=== PATIENT | male | born 1980 | race African-American/Black ===

== ENCOUNTER 2016-12-17 19:25 | Emergency (ER) | payer SELFPAY ==
[2016-12-17] MEDS ORDERED: NORMAL SALINE 1000 ML 1,000 ML IV ONE ×2 (20:34→22:27)
[2016-12-17] MEDS ORDERED: ONDANSETRON HCL INJ/PF 4 MG/2 ML SDV IV ONE (20:34)
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
[2016-12-17] MEDS ORDERED: ACETAMINOPHEN 325 MG TABLET PO ONE (21:25)
[2016-12-17 21:29] LABS: ALANINE AMINOTRANSFERASE 22 U/L (21-72); ALBUMIN 4.3 g/dL (3.5-5.0); ALKALINE PHOSPHATASE 66 U/L (38-126); ANION GAP 12 (5-19); ASPARTATE AMINO TRANSFERASE 24 U/L (17-59); BILIRUBIN,DIRECT 0.3 mg/dL (0.0-0.4); BILIRUBIN,TOTAL 0.9 mg/dL (0.2-1.3); BLOOD UREA NITROGEN 15 mg/dL (7-20); CALCIUM 9.8 mg/dL (8.4-10.2); CARBON DIOXIDE 25 mmol/L (22-30); CHLORIDE 105 mmol/L (98-107); CREATINE KINASE 101 U/L (55-170); GLUCOSE 91 mg/dL (75-110); LIPASE 62.7 U/L (23-300); POTASSIUM 4.5 mmol/L (3.6-5.0); SODIUM 141.6 mmol/L (137-145); TOTAL PROTEIN 7.9 g/dL (6.3-8.2)
[2016-12-17 21:41] LABS: CREATINE KINASE MB 0.29 ng/mL (<4.55)
[2016-12-17 21:42] LABS: TROPONIN I < 0.012 ng/mL
[2016-12-17 22:48] LABS: ABSOLUTE LYMPHOCYTES (AUTO) 0.3 10^3/uL (0.5-4.7); ABSOLUTE MONOCYTES (AUTO) 0.9 10^3/uL (0.1-1.4); ABSOLUTE NEUT (AUTO) 11.4 10^3/uL (1.7-8.2); BASOPHILS % (AUTO) 0.1 % (0-2); EOSINOPHILS % (AUTO) 0.2 % (0-6); HEMATOCRIT 43.8 % (37.9-51.0); HEMOGLOBIN 14.3 g/dL (13.5-17.0); HGB HCT DIFFERENCE -0.9; LYMPHOCYTES % (AUTO) 2.4 % (13-45); MEAN CORPUSCULAR HEMOGLOBIN 25.8 pg (27.0-33.4); MEAN CORPUSCULAR HGB CONC 32.6 g/dL (32.0-36.0); MEAN CORPUSCULAR VOLUME 79 fl (80-97); RED BLOOD COUNT 5.53 10^6/uL (4.35-5.55); RED CELL DISTRIBUTION WIDTH 15.2 % (11.5-14.0); SEGMENTED NEUTROPHILS % (AUTO) 90.3 % (42-78); WHITE BLOOD COUNT 12.6 10^3/uL (4.0-10.5)
[2016-12-17 23:27] LABS: VENOUS BLOOD HCO3 22.3 mmol/L (20-32); VENOUS BLOOD PCO2 36.8 mmHg (35-63); VENOUS BLOOD PH 7.4 (7.30-7.42)
[2016-12-18] LABS: APPEARANCE,URINE SLIGHTLY-CLOUDY; BILIRUBIN,URINE NEGATIVE (NEGATIVE); GLUCOSE, URINE NEGATIVE (NEGATIVE); KETONES,URINE TRACE mg/dL (NEGATIVE); LEUKOCYTE ESTERASE,URINE NEGATIVE (NEGATIVE); NITRITE,URINE NEGATIVE (NEGATIVE); PROTEIN,URINE NEGATIVE (NEGATIVE); URINE SPECIFIC GRAVITY 1.025; UROBILINOGEN,URINE NEGATIVE mg/dL (<2.0)
[2016-12-18] MEDS ORDERED: KETOROLAC TROMETHAMINE INJ/PF 30 MG/1 ML SDV IV ONE (00:01)
[2016-12-18] MEDS ORDERED: PENICILLIN G BENZATHINE 1.2 MILLION UNIT/2 ML DISP.SYRIN IM ONE (00:46)
[2016-12-18] MEDS ORDERED: NORMAL SALINE 1000 ML 1,000 ML IV ONE (01:45)
[2016-12-18 03:45] VITALS: BP 100/61
--- NOTE | 2016-12-18 10:39 | EKG REPORT ---
SEVERITY:- BORDERLINE ECG - SINUS RHYTHM PROBABLE LEFT ATRIAL ABNORMALITY : Confirmed by: Lynda Galvez MD 18-Dec-2016 10:38:37
== END 2016-12-18 03:56 | disposition home or self-care (01) ==
LOC: ER 19:25
DX: J02.0 Streptococcal pharyngitis (principal); E86.0 Dehydration; R50.9 Fever, unspecified; R11.10 Vomiting, unspecified; R07.81 Pleurodynia; R07.9 Chest pain, unspecified
CPT/HCPCS: 93005; 99284; 96372; 96374; 96375; 36415; 87040; 82553; 87880; 82550; 83690; 85025; 80053; 81001; 84484; 82803; 83605; 71020; 93010; J1885; J0561; J2405

== ENCOUNTER 2017-10-24 07:29 | Emergency (ER) | payer OTHER ==
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
[2017-10-24] MEDS ORDERED: ACETAMINOPHEN 325 MG TABLET PO ONE (08:37)
[2017-10-24] MEDS ORDERED: ACETAMINOPHEN 325 MG TABLET ONE (08:40)
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
[2017-10-24] MEDS ORDERED: IBUPROFEN 600 MG TABLET PO ONE (09:11)
[2017-10-24] MEDS ORDERED: LIDOCAINE 5% (700 MG) TRANSDERMAL ADH..PATCH TP ONE (09:11)
[2017-10-24 09:33] VITALS: BP 107/58
== END 2017-10-24 09:32 | disposition home or self-care (01) ==
LOC: ER 07:29
DX: S16.1XXA Strain of muscle, fascia and tendon at neck level, initial encounter (principal); S09.90XA Unspecified injury of head, initial encounter; M54.2 Cervicalgia; M54.5 Low back pain; R51 Headache; V49.40XA Driver injured in collision with unspecified motor vehicles in traffic accident, initial encounter; R42 Dizziness and giddiness; F17.200 Nicotine dependence, unspecified, uncomplicated
CPT/HCPCS: 99284; 72110; 70450; 72125; L0120

== ENCOUNTER 2017-10-26 05:25 | Emergency (ER) | payer OTHER ==
[2017-10-26] MEDS ORDERED: KETOROLAC TROMETHAMINE INJ/PF 30 MG/1 ML SDV IV ONE (05:53)
[2017-10-26] MEDS ORDERED: DEXAMETHASONE SOD PHOS INJ 10 MG/1 ML VIAL IV ONE (05:53)
[2017-10-26] MEDS ORDERED: NORMAL SALINE 1000 ML 1,000 ML IV ONE (05:56)
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
[2017-10-26 06:21] LABS: ABSOLUTE BASOPHILS # (AUTO) 0.1 10^3/uL (0.0-0.2); ABSOLUTE EOSINOPHILS # (AUTO) 0.1 10^3/uL (0.0-0.6); ABSOLUTE MONOCYTES (AUTO) 1.1 10^3/uL (0.1-1.4); ABSOLUTE NEUT (AUTO) 5.1 10^3/uL (1.7-8.2); BASOPHILS % (AUTO) 0.8 % (0-2); EOSINOPHILS % (AUTO) 1.7 % (0-6); HEMATOCRIT 42.3 % (37.9-51.0); HEMOGLOBIN 13.6 g/dL (13.5-17.0); LYMPHOCYTES % (AUTO) 24.1 % (13-45); MEAN CORPUSCULAR HEMOGLOBIN 25.7 pg (27.0-33.4); MEAN CORPUSCULAR HGB CONC 32.2 g/dL (32.0-36.0); MEAN CORPUSCULAR VOLUME 80 fl (80-97); MONOCYTES % (AUTO) 12.5 % (3-13); PLATELET COUNT 244 10^3/uL (150-450); RED BLOOD COUNT 5.29 10^6/uL (4.35-5.55); RED CELL DISTRIBUTION WIDTH 15.5 % (11.5-14.0); SEGMENTED NEUTROPHILS % (AUTO) 60.9 % (42-78); TOTAL CELLS COUNTED % (AUTO) 100 %; WHITE BLOOD COUNT 8.4 10^3/uL (4.0-10.5)
--- NOTE | 2017-10-26 06:42 | ER Document Report ---
ED ENT - General Chief Complaint: Sore Throat Stated Complaint: THROAT PAIN Time Seen by Provider: 10/26/17 06:22 Mode of Arrival: Ambulatory Notes: HPI-37 years old male presents today with sore throat for the last 2 days, and no fever chills no cough no earache. No other constitutional symptoms. REVIEW OF SYSTEMS: CONSTITUTIONAL : Denies fever, chills, or sweats. Denies recent illness. EENT: Denies eye, ear, throat, or mouth pain or symptoms. Denies nasal or sinus congestion or discharge. Denies throat, tongue, or mouth swelling or difficulty swallowing. CARDIOVASCULAR: Denies chest pain. Denies palpitations or racing or irregular heart beat. Denies ankle edema. RESPIRATORY: Denies cough, cold, or chest congestion. Denies shortness of breath, difficulty breathing, or wheezing. GASTROINTESTINAL: Denies abdominal pain or distention. Denies nausea, vomiting , or diarrhea. Denies blood in vomitus, stools, or per rectum. Denies black, tarry stools. Denies constipation. GENITOURINARY: Denies difficulty urinating, painful urination, burning, frequency, blood in urine, or discharge. MUSCULOSKELETAL: Denies back or neck pain or stiffness. Denies joint pain or swelling. SKIN: Denies rash, lesions or sores. HEMATOLOGIC : Denies easy bruising or bleeding. LYMPHATIC: Denies swollen, enlarged glands. NEUROLOGICAL: Denies confusion or altered mental status. Denies passing out or loss of consciousness. Denies dizziness or lightheadedness. Denies headache. Denies weakness or paralysis or loss of use of either side. Denies problems with gait or speech. Denies sensory loss, numbness, or tingling. Denies seizures. PSYCHIATRIC: Denies anxiety or stress. Denies depression, suicidal ideation, or homicidal ideation. ALL OTHER SYSTEMS REVIEWED AND NEGATIVE. Dictation was performed using [employer] voice recognition software PHYSICAL EXAMINATION: GENERAL: Well-appearing, well-nourished and in no acute distress. HEAD: Atraumatic, normocephalic. EYES: Pupils equal round and reactive to light, extraocular movements intact, sclera anicteric, conjunctiva are normal. ENT: Nares patent, erythematous with enlarged tonsils, whitish exudates.. Moist mucous membranes. NECK: Normal range of motion, supple without lymphadenopathy LUNGS: Breath sounds clear to auscultation bilaterally and equal. No wheezes rales or rhonchi. HEART: Regular rate and rhythm without murmurs ABDOMEN: Soft, nontender, nondistended abdomen. No guarding, no rebound. No masses appreciated. Musculoskeletal: Normal range of motion, no pitting or edema. No cyanosis. NEUROLOGICAL: Cranial nerves grossly intact. Normal speech, normal gait. Normal sensory, motor exams PSYCH: Normal mood, normal affect. SKIN: Warm, Dry, normal turgor, no rashes or lesions noted. TRAVEL OUTSIDE OF THE [place] IN LAST 30 DAYS: No - HPI Patient complains to provider of: Throat problem Onset: Yesterday Onset/Duration: Gradual Severity: Moderate Pain Level: 3 Context: denies: Allergies, Injury, Recent Illness, Travel, Other Location of pain: No: Ears, Face, Jaw, Neck, Nose, Sinus, Throat, Tooth, Other Associated symptoms: denies: None, Barotrauma, Broken tooth, Chills, Congestion , Cough, Dental pain, Dental caries, Difficulty swallowing, Dizziness, Drooling , Ear pain, Ear drainage, Ear trauma, Face swelling, Fever, Foreign body, Hearing loss, Headache, Hoarse voice, Jaw pain, Jaw swelling, Motion sickness, Neck pain, Nose bleed, Runny nose, Sinus pain, Sinus drainage, Sore throat, Stiff neck, Swollen glands, Tinnitus, Vertigo, Other - Related Data Allergies/Adverse Reactions: No Known Allergies Allergy (Verified 10/26/17 05:33) Past Medical History - Social History Smoking Status: Current Every Day Smoker Chew tobacco use (# tins/day): No Frequency of alcohol use: Occasional Drug Abuse: None Family History: Reviewed & Not Pertinent Patient has suicidal ideation: No Patient has homicidal ideation: No Renal/ Medical History: Denies: Hx Peritoneal Dialysis - Immunizations Immunizations up to date: Yes Hx Diphtheria, Pertussis, Tetanus Vaccination: Yes Review of Systems - Review of Systems Notes: As per history of complain Physical Exam - Vital signs Vitals: Temp Pulse Resp BP Pulse Ox 98.3 F 66 18 111/65 99 10/26/17 05:34 10/26/17 05:34 10/26/17 05:34 10/26/17 05:34 10/26/17 05:34 Course - Vital Signs Vital signs: Temp Pulse Resp BP Pulse Ox 98.3 F 66 15 106/68 100 10/26/17 05:34 10/26/17 05:34 10/26/17 07:00 10/26/17 06:37 10/26/17 07:00 - Laboratory Result Diagrams: 10/26/17 05:50 Laboratory results interpreted by me: 10/26/17 05:50 MCH 25.7 L RDW 15.5 H Discharge - Discharge Clinical Impression: Strep pharyngitis Condition: Fair Disposition: HOME, SELF-CARE Instructions: Strep Throat ([facility]) Prescriptions: Amoxicillin 1 tab PO TID #30 tab
[2017-10-26 08:41] VITALS: BP 114/74
== END 2017-10-26 08:52 | disposition home or self-care (01) ==
LOC: ER 05:25
DX: J02.0 Streptococcal pharyngitis (principal); F17.200 Nicotine dependence, unspecified, uncomplicated
CPT/HCPCS: 99283; 96361; 96374; 96375; 36415; 87880; 85025; J1885; J7030; J1100

== ENCOUNTER 2018-02-05 10:40 | Emergency (ER) | payer SELFPAY ==
[2018-02-05 10:46] VITALS: BP 103/59
[2018-02-05] MEDS ORDERED: LIDOCAINE 5% (700 MG) TRANSDERMAL ADH..PATCH TP ONE (11:33)
[2018-02-05] MEDS ORDERED: IBUPROFEN 800 MG TABLET PO ONE (11:33)
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
== END 2018-02-05 11:59 | disposition home or self-care (01) ==
LOC: ER 10:40
DX: S16.1XXA Strain of muscle, fascia and tendon at neck level, initial encounter (principal); M54.2 Cervicalgia; X58.XXXA Exposure to other specified factors, initial encounter; F17.200 Nicotine dependence, unspecified, uncomplicated
CPT/HCPCS: 99283

== ENCOUNTER 2018-03-31 17:14 | Emergency (ER) | payer OTHER ==
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
[2018-03-31 19:40] VITALS: BP 115/62
== END 2018-03-31 19:37 | disposition home or self-care (01) ==
LOC: ER 17:14
DX: R51 Headache (principal); M25.512 Pain in left shoulder; V43.52XA Car driver injured in collision with other type car in traffic accident, initial encounter; Y99.0 Civilian activity done for income or pay
CPT/HCPCS: 70450; 99284; L0120

== ENCOUNTER 2018-04-14 06:07 | Emergency (ER) | payer OTHER ==
[2018-04-14 07:26] LABS: ABSOLUTE EOSINOPHILS # (AUTO) 0.2 10^3/uL (0.0-0.6); ABSOLUTE LYMPHOCYTES (AUTO) 2.3 10^3/uL (0.5-4.7); ABSOLUTE MONOCYTES (AUTO) 1.2 10^3/uL (0.1-1.4); ABSOLUTE NEUT (AUTO) 6.2 10^3/uL (1.7-8.2); BASOPHILS % (AUTO) 0.4 % (0-2); EOSINOPHILS % (AUTO) 2.2 % (0-6); HEMOGLOBIN 12.3 g/dL (13.5-17.0); LYMPHOCYTES % (AUTO) 22.9 % (13-45); MEAN CORPUSCULAR HEMOGLOBIN 26.5 pg (27.0-33.4); MEAN CORPUSCULAR HGB CONC 33.3 g/dL (32.0-36.0); MEAN CORPUSCULAR VOLUME 80 fl (80-97); MONOCYTES % (AUTO) 11.8 % (3-13); PLATELET COUNT 212 10^3/uL (150-450); RED BLOOD COUNT 4.65 10^6/uL (4.35-5.55); RED CELL DISTRIBUTION WIDTH 15.2 % (11.5-14.0); SEGMENTED NEUTROPHILS % (AUTO) 62.7 % (42-78); TOTAL CELLS COUNTED % (AUTO) 100 %; WHITE BLOOD COUNT 9.9 10^3/uL (4.0-10.5)
[2018-04-14 07:36] LABS: APPEARANCE,URINE SLIGHTLY-CLOUDY; BILIRUBIN,URINE NEGATIVE (NEGATIVE); COLOR,URINE YELLOW; GLUCOSE, URINE NEGATIVE (NEGATIVE); KETONES,URINE TRACE mg/dL (NEGATIVE); LEUKOCYTE ESTERASE,URINE TRACE (NEGATIVE); NITRITE,URINE NEGATIVE (NEGATIVE); PROTEIN,URINE 30 mg/dL (NEGATIVE); URINE SPECIFIC GRAVITY 1.028
[2018-04-14 07:39] LABS: ALANINE AMINOTRANSFERASE 19 U/L (21-72); ALKALINE PHOSPHATASE 50 U/L (38-126); ANION GAP 6 (5-19); ASPARTATE AMINO TRANSFERASE 23 U/L (17-59); BILIRUBIN,DIRECT 0.2 mg/dL (0.0-0.4); BILIRUBIN,TOTAL 0.4 mg/dL (0.2-1.3); BLOOD UREA NITROGEN 13 mg/dL (7-20); CALCIUM 9.4 mg/dL (8.4-10.2); CARBON DIOXIDE 30 mmol/L (22-30); CHLORIDE 106 mmol/L (98-107); GLUCOSE 85 mg/dL (75-110); SODIUM 141.8 mmol/L (137-145); TOTAL PROTEIN 7.2 g/dL (6.3-8.2)
[2018-04-14 07:40] LABS: ACETAMINOPHEN < 10 ug/mL (10-30); ALCOHOL < 10 mg/dL (NONE DETECTED); SALICYLATE < 1.0 mg/dL (2.0-20.0)
[2018-04-14 07:54] LABS: URINE AMPHETAMINES SCREEN NEGATIVE; URINE BARBITURATES SCREEN NEGATIVE; URINE BENZODIAZEPINES SCREEN NEGATIVE; URINE COCAINE SCREEN NEGATIVE; URINE MARIJUANA (THC) SCREEN UNCONFIRMED POSITIVE; URINE METHADONE SCREEN NEGATIVE; URINE PHENCYCLIDINE SCREEN NEGATIVE
--- NOTE | 2018-04-14 08:35 | EKG REPORT ---
SEVERITY:- ABNORMAL ECG - SINUS BRADYCARDIA LEFT VENTRICULAR HYPERTROPHY ST ELEV, PROBABLE NORMAL EARLY REPOL PATTERN TALL T, CONSIDER METABOLIC/ISCHEMIC ABNRM : Confirmed by: Yadi Fay 14-Apr-2018 08:34:35
--- NOTE | 2018-04-14 09:47 | ER Document Report ---
ED Psych Disorder / Suicide - General Chief Complaint: Suicidal Ideation Stated Complaint: PSYCH Time Seen by Provider: 04/14/18 06:28 Notes: 37-year-old male to the emergency department for evaluate of suicidal ideation and depression. Has been undergoing a lot of stress. Family . Stress with child leaving the house. According to girlfriend having increased sadness. Was having thoughts about ending it. Does not have a plan. No homicidal ideation. No voices. Denies any ingestions. TRAVEL OUTSIDE OF THE [place] IN LAST 30 DAYS: No - HPI Patient complains to provider of: Suicidal ideation Severity: Moderate Pain Level: 0 - Related Data Allergies/Adverse Reactions: No Known Allergies Allergy (Verified 03/31/18 17:15) Past Medical History - General Information source: Patient - Social History Smoking Status: Current Every Day Smoker Chew tobacco use (# tins/day): No Frequency of alcohol use: None Drug Abuse: None Lives with: Spouse/Significant other Family History: Reviewed & Not Pertinent Patient has suicidal ideation: No Patient has homicidal ideation: No Renal/ Medical History: Denies: Hx Peritoneal Dialysis - Immunizations Immunizations up to date: Yes Hx Diphtheria, Pertussis, Tetanus Vaccination: Yes Review of Systems - Review of Systems Notes: Constitutional: denies: Chills, Diaphoresis, Fever, Malaise, Weakness EENT: denies: Eye discharge, Blurred vision, Tearing, Double vision, Nose congestion, Nose discharge, Throat swelling, Mouth pain Cardiovascular: denies: Palpitations, Heart racing, Orthopnea, Dyspnea, Chest pain Respiratory: denies: Cough, Hurts to breathe, Wheezing, Shortness of breath Gastrointestinal: denies: Abdominal pain, Diarrhea, Nausea, Vomiting, Black stools, bright red blood in stool Genitourinary: denies: Burning, Dysuria, Discharge, Frequency, Flank pain, Hematuria Musculoskeletal: denies: Joint pain, Joint swelling, Muscle pain, Muscle stiffness, back pain Hematologic/Lymphatic: denies: Anemia, Easy bleeding, Easy bruising, Blood clots Neurological/Psychological: denies: Confusion, Dementia, Depression, Loss of consciousness. Does complain of depression and suicidal ideation Skin: No lesions, no masses, no skin breakdown, no abscesses Physical Exam - Vital signs Vitals: Temp Pulse Resp BP Pulse Ox 97.5 F 65 14 103/60 99 04/14/18 06:12 04/14/18 06:12 04/14/18 06:12 04/14/18 06:12 04/14/18 06:12 Interpretation: Normal - General General appearance: Appears well, Alert - HEENT Head: Normocephalic, Atraumatic Eyes: Normal Pupils: PERRL - Respiratory Respiratory status: No respiratory distress Chest status: Nontender Breath sounds: Normal Chest palpation: Normal - Cardiovascular Rhythm: Regular Heart sounds: Normal auscultation Murmur: No - Abdominal Inspection: Normal Distension: No distension Bowel sounds: Normal Tenderness: Nontender Organomegaly: No organomegaly - Back Back: Normal, Nontender - Extremities General upper extremity: Normal inspection, Nontender, Normal color, Normal ROM , Normal temperature General lower extremity: Normal inspection, Nontender, Normal color, Normal ROM , Normal temperature, Normal weight bearing. No: Yanira's sign - Neurological Neuro grossly intact: Yes Cognition: Normal Orientation: AAOx4 Ryan Coma Scale Eye Opening: Spontaneous Ryan Coma Scale Verbal: Oriented [place] Coma Scale Motor: Obeys Commands Ryan Coma Scale Total: 15 Speech: Normal Motor strength normal: LUE, RUE, LLE, RLE Sensory: Normal - Psychological Associated symptoms: Normal affect, Normal mood - Skin Skin Temperature: Warm Skin Moisture: Dry Skin Color: Normal Course - Re-evaluation Re-evalutation: 04/14/18 12:16 [facility] has evaluated patient via telemedicine they are recommending starting patient on 5 mg of Zyprexa and 1 mg of Cogentin. Will give initial dose here. Will follow recommendations. Anticipate DC shortly. - Vital Signs Vital signs: Temp Pulse Resp BP Pulse Ox 97.5 F 65 14 103/60 99 04/14/18 06:12 04/14/18 06:12 04/14/18 06:12 04/14/18 06:12 04/14/18 06:12 - Laboratory Result Diagrams: 04/14/18 06:55 04/14/18 06:55 Laboratory results interpreted by me: 04/14/18 04/14/18 04/14/18 06:55 06:55 07:10 Hgb 12.3 L Hct 37.0 L MCH 26.5 L RDW 15.2 H ALT 19 L Urine Protein 30 H Urine Ketones TRACE H Urine Urobilinogen 2.0 H Ur Leukocyte Esterase TRACE H Salicylates < 1.0 L Acetaminophen < 10 L Discharge - Discharge Clinical Impression: Acute stress reaction causing mixed disturbance of emotion and conduct Condition: Good Disposition: HOME, SELF-CARE Instructions: Depression ([facility]) Additional Instructions: Please begin medications as prescribed. Please make appointment to follow-up with [facility]. In the event that you develop any worsening symptoms including worsening depression, suicidal ideation, voices telling need to do something abnormal, hallucinations or other concerns please return immediately for repeat evaluation. Prescriptions: Benztropine Mesylate [Cogentin 1 mg Tablet] 1 mg PO DAILY 14 Days #14 tablet Olanzapine [Zyprexa 5 mg Tablet] 5 mg PO Q12 14 Days #28 tablet Referrals: [facility] [Provider Group] - Follow up in 3-5 days
[2018-04-14] MEDS ORDERED: OLANZAPINE 5 MG TABLET PO ONE (12:15)
[2018-04-14] MEDS ORDERED: BENZTROPINE MESYLATE 1 MG TABLET PO ONE (12:15)
[2018-04-14 12:54] VITALS: BP 140/64
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
== END 2018-04-14 12:54 | disposition home or self-care (01) ==
LOC: ER 06:07
DX: F43.25 Adjustment disorder with mixed disturbance of emotions and conduct (principal); R45.851 Suicidal ideations
CPT/HCPCS: 36415; 80053; 80307; 81001; 85025; 93005; 93010; 99285